=== PATIENT | female | born 1965 | race Caucasian/White ===

== ENCOUNTER 2020-10-09 04:29 | Day surgery (SDC) | payer BC ==
[2020-10-08 10:45] VITALS: BMI 25.4
[2020-10-09 08:32] VITALS: TEMP 97.6
[2020-10-09 10:44] VITALS: BP 119/73; PULSE 73
== END 2020-10-09 09:43 | disposition home or self-care (01) ==
LOC: JASU-ENDO 04:29
PROVIDERS: ATTEND Internal Medicine Gastroenterology
PROC: 0DJD8ZZ Inspection of Lower Intestinal Tract, Via Natural or Artificial Opening Endoscopic (ICD-10-PCS; principal; 2020-10-09 08:00)
DX: Z12.11 Encounter for screening for malignant neoplasm of colon (principal); Z86.010 Personal history of colon polyps; E11.9 Type 2 diabetes mellitus without complications

== ENCOUNTER 2024-03-26 17:47 | Observation (INO) | payer BC ==
[2024-03-26 19:13] VITALS: RESP 18
[2024-03-26] MEDS ORDERED: ENOXAPARIN NA (PORCINE) 60 MG/0.6 ML DISP.SYRIN SQ ONE (20:59)
[2024-03-26] MEDS: ENOXAPARIN NA (PORCINE) 60 MG/0.6 ML DISP.SYRIN SQ ONE (21:05)
[2024-03-26 21:08] LABS: HEMATOCRIT 34.7 % (32.4-45.2); HEMOGLOBIN 11.5 G/dL (10.7-15.3); MCH 27.5 pg (25.7-33.7); MCHC 33.2 g/dl (32.0-36.0); MEAN CELL VOLUME 82.8 fl (80-96); PLATELET COUNT 150.2 10^3/uL (134-434); RBC 4.19 10^6/uL (3.60-5.2); RDW 15.7 % (11.6-15.6); WHITE BLOOD COUNT 9.3 10^3/uL (4.0-10.8)
[2024-03-26 21:22] LABS: INR 0.97 (0.83-1.09); PROTHROMBIN TIME (PATIENT) 11.1 SEC (9.7-13.0)
[2024-03-26 21:24] LABS: ACTIVATED PTT 46.3 SECONDS (25.2-36.5)
[2024-03-26 21:32] LABS: BILIRUBIN,TOTAL 1.1 mg/dl (0.2-1); CALCIUM 8.9 mg/dl (8.5-10.1); CREATININE 0.5 mg/dl (0.6-1.3); POTASSIUM 4.3 mmol/L (3.5-5.1); TOT PROT 6.6 g/dl (6.4-8.2)
[2024-03-27] MEDS ORDERED: ACETAMINOPHEN 325 MG TABLET (FP) PO PRN (00:18)
[2024-03-27 05:46] VITALS: BMI 24.5
[2024-03-27] MEDS: GLIMEPIRIDE 2 MG TABLET PO SCH (06:44)
[2024-03-27] MEDS: metFORMIN HCL 500 MG TABLET (FP) PO SCH (06:44)
[2024-03-27] MEDS: INSULIN ASPART SLIDING SCALE (NOVOLOG) 1 VIAL SQ SCH (06:44)
[2024-03-27 08:39] LABS: CALCIUM 9.2 mg/dl (8.5-10.1); CREATININE 0.6 mg/dl (0.6-1.3); POTASSIUM 3.9 mmol/L (3.5-5.1)
[2024-03-27 09:38] LABS: BASO % 0.6 % (0-2.0); EOS % 3.6 % (0-4.5); HEMATOCRIT 38.7 % (32.4-45.2); HEMOGLOBIN 12.5 GM/dL (10.7-15.3); LYMPH % 17.5 % (8-40); MCH 26.6 pg (25.7-33.7); MCHC 32.3 g/dl (32.0-36.0); MEAN CELL VOLUME 82.2 fl (80-96); MEAN PLT VOLUME 7.6 fl (7.5-11.1); MONO % 5.2 % (3.8-10.2); NEUT % 73.1 % (42.8-82.8); PLATELET COUNT 227 10^3/uL (134-434); RBC 4.71 M/mm3 (3.60-5.2); RDW 15.1 % (11.6-15.6); WHITE BLOOD COUNT 8.6 K/mm3 (4.0-10.0)
[2024-03-27] MEDS: ENOXAPARIN NA (PORCINE) 60 MG/0.6 ML DISP.SYRIN SQ SCH (09:45)
[2024-03-27] MEDS: ASPIRIN COATED 81 MG TABLET.EC PO SCH (09:45)
[2024-03-27 10:08] VITALS: BP 119/63; PULSE 88; TEMP 98
[2024-03-27] MEDS: APIXABAN 5 MG TABLET PO SCH (11:58)
[2024-03-27] MEDS ORDERED: ROSUVASTATIN CA 10 MG TABLET PO SCH (22:00)
== END 2024-03-27 13:10 | disposition home or self-care (01) ==
LOC: FER 17:47 → FM/S 21:09
PROVIDERS: ADMIT Internal Medicine
PROC: 3E023GC Introduction of Other Therapeutic Substance into Muscle, Percutaneous Approach (ICD-10-PCS; principal; 2024-03-26)
PROC: 3E013VG Introduction of Insulin into Subcutaneous Tissue, Percutaneous Approach (ICD-10-PCS; 2024-03-26)
DX: I82.411 Acute embolism and thrombosis of right femoral vein (principal); R60.0 Localized edema; D68.51 Activated protein C resistance; E04.1 Nontoxic single thyroid nodule; Z87.891 Personal history of nicotine dependence; E78.00 Pure hypercholesterolemia, unspecified; Z88.0 Allergy status to penicillin; E11.9 Type 2 diabetes mellitus without complications; Z90.49 Acquired absence of other specified parts of digestive tract
CPT/HCPCS: 36415; 71045-TC-FY; 80048; 80053; 82962; 85025; 85027; 85610; 85730; 93005; 93971-TC; 96372; 99285-25; G0378